=== PATIENT | male | born 1990 | race Caucasian/White ===

== ENCOUNTER 2019-03-08 20:08 | Emergency (ER) | payer BC ==
[~2019-03-08] VITALS: Ht 172.7 cm; Wt 95.9 kg
[~2019-03-08 20:08] MED LIST: IBUP800T48 PO
[2019-03-08 20:10] VITALS: Ht 172.7 cm; Wt 95.9 kg
[2019-03-08] MEDS ORDERED: IBUPROFEN 800 MG TAB PO ONE (20:30)
[2019-03-08] MEDS ORDERED: LIDOCAINE 1%/EPI (MDV) 50 ML INJ INJ ONE (21:00)
[2019-03-08] MEDS ORDERED: LIDOCAINE 1%/EPI 30 ML INJ INJ SCH (21:00)
[2019-03-08 22:45] VITALS: BP 131/77; PULSE 101; RESP 20
== END 2019-03-08 23:00 | disposition home or self-care (01) ==
LOC: E/R 20:08
DX: S01.01XA Laceration without foreign body of scalp, initial encounter (principal); S80.02XA Contusion of left knee, initial encounter; S09.90XA Unspecified injury of head, initial encounter; M25.462 Effusion, left knee; F17.210 Nicotine dependence, cigarettes, uncomplicated; V43.52XA Car driver injured in collision with other type car in traffic accident, initial encounter
CPT/HCPCS: 73562

== ENCOUNTER 2019-03-18 13:23 | Emergency (ER) | payer BC ==
[~2019-03-18] VITALS: Ht 172.7 cm; Wt 99.1 kg
[2019-03-18 13:28] VITALS: BP 116/62; PULSE 71; RESP 18; Ht 172.7 cm; Wt 99.1 kg
== END 2019-03-18 14:31 | disposition home or self-care (01) ==
LOC: E/R 13:23
DX: Z48.02 Encounter for removal of sutures (principal)
CPT/HCPCS: 99281